=== PATIENT | female | born 1995 | race Caucasian/White ===

== ENCOUNTER 2024-11-30 19:52 | Emergency (ER) | payer SELFPAY ==
[~2024-11-30] VITALS: Ht 162.6 cm; Wt 58.0 kg
[2024-11-30 19:57] VITALS: O2SAT 100
[2024-11-30] MEDS: IBUPROFEN 800MG TABLET PO ONE (20:51)
[2024-11-30] MEDS ORDERED: IBUP-2030 MT (21:47)
[2024-11-30] MEDS ORDERED: CYCL5TAB3 MT (21:47)
[2024-11-30 21:56] VITALS: BP 112/63; PULSE 63; RESP 16; TEMP 36.8; O2SAT 100
== END 2024-11-30 22:00 | disposition home or self-care (01) ==
LOC: ER 19:52
DX: S40.011A Contusion of right shoulder, initial encounter (principal); S80.02XA Contusion of left knee, initial encounter; V49.9XXA Car occupant (driver) (passenger) injured in unspecified traffic accident, initial encounter; Y93.89 Activity, other specified; Y92.410 Unspecified street and highway as the place of occurrence of the external cause; Y99.8 Other external cause status
CPT/HCPCS: 73030; 73562; 81025; 99284